=== PATIENT | male | born 1980 ===

== ENCOUNTER → 2021-03-19 | Day surgery (SDC) | payer BC ==
[~2021-03-19] VITALS: Ht 162.6 cm; Wt 118.0 kg
[2021-03-19] VITALS (8 sets, daily range): BP systolic 93–126; BP diastolic 66–92; PULSE 75–97; TEMP 97.9
[~2021-03-19] MED LIST: DEPO-TESTOS100 MG/ML; ELIQUIS 5MG PO; GLUCOPHAGE500 MG/TAB PO; KLONOPIN 0.5MG0.5 MG PO; LIPITOR20 MG PO; PAXIL40 MG PO; TOPROL XL 25MG25 MG PO
[2021-03-19 08:57] LABS: POTASSIUM 4.1 mmol/L (3.5-4.5)
[2021-03-19 09:03] LABS: INR 1.5 (0.8-3.0); PROTHROMBIN TIME 16.2 SECONDS (9.7-12.8)
[2021-03-19 09:24] LABS: THYROID STIMULATING HORMONE 1.356 uIU/mL (0.350-4.940)
--- NOTE | 2021-03-19 10:14 | NUR ---
I assumed care of Denny at 0945. He is awake and alert, reports feels "drunk". vitals stable, NSR on monitor, telemetry initiated. Sister and dad are back at bs. Pt denies any sore throat or sore skin where patches were placed. I reviewed dc instructions with pt and family at this time with plans to review again.
--- NOTE | 2021-03-19 11:45 | NUR ---
Pt ready for discharge at this time. He has remained in sinus rhythm throughout his recovery. I have reviewed again, dc and fu instructions with pt and his sister. He denies any questions. He has been up and ambulatory to bathroom with no problem. steady gait. I removed IV with cath intact dressing applied. Pt escorted to exit via wheelchair.
== END ==
LOC: COL.CAR 07:43
PROVIDERS: Internal Medicine Cardiovascular Disease
DX: I48.3 Typical atrial flutter (principal); I10 Essential (primary) hypertension; E78.5 Hyperlipidemia, unspecified; F32.A Depression, unspecified; F41.9 Anxiety disorder, unspecified; Z79.01 Long term (current) use of anticoagulants; Z79.899 Other long term (current) drug therapy
CPT/HCPCS: J2704; J7030